=== PATIENT | male | born 1970 | race Caucasian/White ===

== ENCOUNTER → 2019-06-18 10:07 | Outpatient (CLI) | payer BC, SELFPAY ==
--- NOTE | ~2019-06-18 | MR_ITS ---
EXAMINATION: MR knee RT wo con DATE: 06/18/2019 10:40 INDICATION: Acute meniscal tear of unspecified meniscus. Right knee pain. TECHNIQUE: Magnetic resonance imaging (MRI) of the right knee was performed without intravenous contr ast. Sequences included axial PD-weighted FS FSE, coronal PD-weighted FSE and PD-weighted FS FSE, sag ittal PD-weighted FSE, and sagittal T2-weighted FS FSE. COMPARISON: None. FINDINGS: Medial compartment: There is a complex tear of posterior horn of medial meniscus. Tibial cartilage is normal. There is sh allow partial-thickness cartilage loss of femoral condyle involving the lateral articular surface. Lateral compartment: Lateral meniscus is normal. There is cartilage surface irregularity of femoral condyle and tibial con dyle. Patellofemoral compartment: Patellar cartilage is normal. Trochlear cartilage is normal. Ligaments and tendons: Anterior cruciate ligament is normal. There are changes of sprain of posterior cruciate ligament jess acterized by increased signal intensity. Medial collateral ligament and lateral collateral ligament c omplex are normal. There is mild patellar tendinopathy. Fluid: There is a small knee joint effusion. There is trace fluid in a Savage's cyst. IMPRESSION: 1. Mild chondrosis of medial and lateral compartments. 2. Complex tear of medial meniscus. 3. Small knee joint effusion. 4. Changes of prior sprain of posterior cruciate ligament. Reviewed, dictated and finalized at location A. [employer]IST
== END ==
PROVIDERS: Visit Provider Internal Medicine
DX: S83.231A Complex tear of medial meniscus, current injury, right knee, initial encounter (principal); X58.XXXA Exposure to other specified factors, initial encounter; M25.461 Effusion, right knee
CPT/HCPCS: 73721

== ENCOUNTER 2019-07-02 10:37 | Outpatient (CLI) | payer BC, SELFPAY ==
[2019-07-02 11:44] LABS: Alanine Aminotransferase 20 U/L (4-50); Albumin Level 4.9 g/dL (3.5-5.1); Alkaline Phosphatase 55 U/L (38-126); Aspartate Amino Transferase 32 U/L (17-59); Bilirubin,Total 0.7 mg/dL (0.2-1.3); Blood Urea Nitrogen 10 mg/dL (9-20); Calcium 9.1 mg/dL (8.4-10.2); Carbon Dioxide 29 mmol/L (22-30); Chloride 100 mmol/L (98-107); Estimated Glomerular Filt Rate > 60; Glucose 84 mg/dL (75-110); Potassium 3.9 mmol/L (3.4-5.0); Sodium 138 mmol/L (137-145)
[2019-07-02 12:14] LABS: Prostate Specific Antigen 2.4 ng/mL (< OR = 4.0)
[2019-07-04 05:42] LABS: Homocysteine 11.1 umol/L (<11.4)
[2019-07-04 09:42] LABS: Testosterone Total 496 ng/dL (250-1100)
== END 2019-07-02 10:38 | disposition home or self-care (01) ==
PROVIDERS: PCP Internal Medicine; Visit Provider Internal Medicine
DX: Z00.00 Encounter for general adult medical examination without abnormal findings (principal); Z12.5 Encounter for screening for malignant neoplasm of prostate
CPT/HCPCS: 36415; 80053; 83090; 84153; 84403; G0103

== ENCOUNTER 2021-03-18 16:42 | Outpatient (CLI) | payer OTHER, SELFPAY ==
--- NOTE | ~2021-03-18 | MR_ITS ---
EXAMINATION: MR knee RT wo con DATE: 03/18/2021 18:13 INDICATION: Chronic tear right medial meniscal tear presenting with medial right knee pain and swelli ng post injury 3 weeks prior. TECHNIQUE: Magnetic resonance imaging (MRI) of the right knee was performed without intravenous contr ast. Sequences included coronal PD-weighted FSE, coronal PD-weighted FS FSE, sagittal T2-weighted FS E, sagittal PD-weighted FS FSE and axial PD weighted fat saturated FSE. COMPARISON: None. FINDINGS: Medial compartment: Complex tear involving the body and posterior horn of the medial meniscus. The posterior horn appears small due to lateral displacement of a meniscal flap which can be seen extending cephalad between th e lateral margin of the posterior intercondylar notch and the posterior cruciate ligament. The periph eral inferior aspect of the meniscal body is also caudally subluxed along the medial rim of the media l tibial plateau. Articular cartilage is normal. Lateral compartment: Lateral meniscus is normal. Articular cartilage is normal. Patellofemoral compartment: Articular cartilage is normal. Ligaments and tendons: Anterior and posterior cruciate ligaments are normal. The fibular collateral ligament complex is norm al. There is small amount of fluid signal extending craniocaudally along the deep and superficial mar gins of the otherwise normal-appearing medial collateral ligament which given history of recent traum a would be consistent with low-grade sprain. Alternatively this could represent coincidental reactive edema related to the adjacent meniscal tear.. The extensor mechanism is normal. The visualized media l and lateral hamstring tendons as well as the iliotibial band are normal. Fluid: Small right knee joint effusion. No loose osteochondral bodies identified. Incomplete suprapatellar p lical band. There is also a medial plical band which remains medial to the rim of the medial trochlea . Osseous/other: Normal marrow signal. No fracture or pathologic marrow replacing process. IMPRESSION: 1. Complex tear of the body and posterior horn of the medial meniscus with displaced meniscal flap ar ising from the posterior horn. 2. Possible low-grade sprain of the medial collateral ligament. Differential would include reactive e kamala related to the adjacent meniscal tear. Reviewed, dictated and finalized at location A. [employer] IMPRESSION: 1. Complex tear of the body and posterior horn of the medial meniscus with disp laced meniscal flap arising from the posterior horn. 2. Possible low-grade sprain of the medial collateral ligament. Differential wo uld include reactive edema related to the adjacent meniscal tear.
== END 2021-03-18 16:43 | disposition home or self-care (01) ==
PROVIDERS: PCP Internal Medicine; Visit Provider Internal Medicine
DX: S83.231A Complex tear of medial meniscus, current injury, right knee, initial encounter (principal); M25.461 Effusion, right knee
CPT/HCPCS: 73721

== ENCOUNTER → 2021-04-03 03:48 | Outpatient (CLI) | payer OTHER, SELFPAY ==
[2021-04-04 16:07] LABS: SARS-CoV-2 RNA PCR Negative (Negative)
== END ==
PROVIDERS: PCP Internal Medicine; Visit Provider Orthopaedic Surgery
DX: U07.1 COVID-19 (principal)
CPT/HCPCS: C9803; U0003; U0005

== ENCOUNTER 2021-04-06 01:17 | Day surgery (SDC) | payer OTHER, SELFPAY ==
[2021-04-02 15:48] VITALS: BMI 24.2
--- NOTE | 2021-04-02 15:54 | PC.NURSE ---
Report to the Outpatient Waiting Room, entrance under the green pavilion located off [facility], at time __0900_ on date 04-06-2021. OR Time: ___1100_. - You and your visitor will be asked a series of questions to screen for COVID 19 for your protection. - A mask is required within the hospital. - Only one visitor is allowed at this time. Patient visitors will be guided where to wait when not with patient. Preoperative COVID Testing Requirements: Covid test 04-03-2021 at 0810 No COVID Test needed if: (proof is required; if not received patient will have Rapid Test prior to entry) - Patient has received COVID Vaccine at least 14 days prior to procedure date or - Patient has positive COVID test result within last 90 days of surgery date. COVID Test needed if above criteria is not met If not COVID vaccinated a COVID test must be conducted within 72 hours of surgery and patient is asked to isolate self from time of testing until procedure. You will go to the [facility] for your COVID testing. The [facility] is located at the corner of [address] from [facility]. You will only be called if COVID results are positive and your surgeon may reschedule your elective surgery date. Patients may have clear liquids (water, carbonated beverages, clear teas, apple juice) until 3 hours prior to surgery with a maximum of 20 ounces. - No food from midnight until time of surgery - Infants may have breast milk until 4 hours before surgery, formula 6 hours prior to surgery. - Children will be allowed to drink immediately following surgery. If applicable, please bring a bottle or sippy cup to assist with drinking. Juice, water, soda, and popsicles are readily available. For infants on formula, please bring formula the day of surgery. Pacifiers are allowed. Take the following medications with a SIP of water the morning of surgery: Medications to discontinue per physician Date to take last dose Please no make-up, nail mexican, hairspray, perfume, deodorant, or body powder the day of surgery. No jewelry (including any body piercings) or valuables the day of surgery, leave them at home. Please take a shower or bath the night before, or the morning of, surgery with an antibacterial soap. Wear comfortable, loose fitting clothing. Children are encouraged to wear pajamas. - Jewelry must be removed prior to entering the operating room. Rings and piercings that are not removed may be cut off. - The hospital will not accept responsibility for valuables. - Please leave all valuables, including medications, at home the day of surgery. If you are going home after surgery, a licensed local combination truck driver must drive you home. - NO public transportation without another adult. - We recommend that an adult stay with you for 24 hours following discharge. - We also recommend that you do not drive, make important decision, drink alcoholic beverages, or take any drugs that were not prescribed by your health care provider for at least 24 hours after your discharge time. For Pediatric surgeries, we recommend two adults accompany the child home (only one inside the building at this time). Follow any additional instructions given to you from your surgeon. Telephone instructions given to __Patient___and asked if any additional questions and then verbalized understanding. Patient advised to call surgeon office or pre surgery nurse liaison [phone] if any additional questions.
[2021-04-06] VITALS (8 sets, daily range): BP systolic 123–140; BP diastolic 83–96; PULSE 56–77; RESP 12–16; TEMP 36.1–36.2; O2SAT 98–100
--- NOTE | 2021-04-06 07:29 | WPDANESEPP ---
[facility] - Eval Pre Procedure Procedure: Operation Date: 04/06/21 11:00 Proposed Procedures p Right Knee Arthroscopy with Meniscectomy - Tato Choe MD Date/Time: 04/06/21 07:29 Pre Op Diagnosis: right knee medial meniscal tear Patient Data Age: 51 Gender: M Height: 1.83 m Weight: 80.9 kg Allergies Allergy/AdvReac Type Severity Reaction Status Date / Time No Known Allergies Allergy Verified 04/02/21 15:48 Home Medications Medication Instructions Recorded Confirmed Type No Home Medications 07/02/19 04/02/21 History Patient hx anesthesia problems: none Family hx anesthesia problems: none Results Review: All pre-operative results and documents have been reviewed as part of the pre-operative evaluation. [facility] Past Medical History Medical History BMI 23.0-23.9, adult Encounter for medical examination to establish care Right knee pain Right shoulder pain Tear of medial meniscus of right knee Family History Family History Mother Cancer Social History Social History Smoking status: Never smoker Alcohol intake: current Drinks per week: 5 Alcohol use details: Occasional Living arrangements: with family Additional living arrangements comments: Smiley- spouse Additional occupation/education comments: Dentist Spiritual care concerns: No Exam Day of Procedure 04/06/21 07:29 Patient weight: normal Heart: regular rate and rhythm Lungs: clear to auscultation Airway: Mallampati scale class II Neurological: alert and oriented
--- NOTE | 2021-04-06 09:54 | P.PNAN_ITS ---
Anes - Initial Pre Proc Eval Procedure: Operation Date: 04/06/21 11:00 Proposed Procedures p Right Knee Arthroscopy with Meniscectomy - Tato Choe MD Date/Time: 04/06/21 09:54 Surgeon: Tato Choe MD Pre Op Diagnosis: right knee medial meniscal tear Patient Data Age: 51 Gender: M Height: 1.83 m Weight: 80.9 kg Allergies Allergy/AdvReac Type Severity Reaction Status Date / Time No Known Allergies Allergy Verified 04/06/21 09:27 Home Medications Medication Instructions Recorded Confirmed Type No Home Medications 07/02/19 04/02/21 History Patient hx anesthesia problems: none Family hx anesthesia problems: none Results Review: All pre-operative results and documents have been reviewed as part of the pre-operative evaluation. [facility], [facility] Past Medical History Medical History BMI 23.0-23.9, adult Encounter for medical examination to establish care Right knee pain Right shoulder pain Tear of medial meniscus of right knee Family History Family History Mother Cancer Social History Social History (Updated 04/06/21 @ 10:09 by Ricardo Carrillo DO) Smoking status: Never smoker Alcohol intake: current Drinks per week: 5 Alcohol use details: 1 drink/day Living arrangements: with family Additional living arrangements comments: Smiley- spouse Additional occupation/education comments: Dentist Spiritual care concerns: No Anes - Eval Final PreProcedure Day of Procedure 04/06/21 09:54 Patient weight: normal Heart: regular rate and rhythm Lungs: clear to auscultation and normal air movement Airway: Mallampati scale class II Neurological: alert and oriented Last oral intake: >/= 8 hours ASA classification: II Emergent: no Anesthetic plan: proceed Anesthesia type and monitoring: general LMA and standard monitoring Results Review: All pre-operative results and documents have been reviewed as part of the pre-operative evaluation. Informed Consent: The patient's anesthetic plan and its attendant risks and b enefits were discussed with the patient/family/POA. Questions were solicited and answers provided to the satisfaction of the patient/family/POA.
[2021-04-06] MEDS: LACTATED RINGERS 1,000 ML 30 ML IV CONT ×2 (10:25→12:19)
[2021-04-06] MEDS: KETOROLAC 15 MG/ML VIAL (*BKC) IV PUSH ×2 (10:30→12:59)
--- NOTE | 2021-04-06 11:14 | WPDHPUPDATE1 ---
History and Physical Update Update Date/Time: 04/06/21 11:14 History and Physical has been reviewed, including an updated exam of the patient. There are NO changes in the patient's condition. Risks, benefits, and alternatives have been discussed and questions answered. Patient agrees to proceed with procedure.
[2021-04-06] MEDS: ceFAZolin 2 GM/D5W 50 ML 2 GM/50 ML BAG IVPB (11:19)
[2021-04-06] MEDS: LIDOCAINE HCL 1% PF 30 ML VIAL 20 ML INFILTRATE (11:38)
--- NOTE | 2021-04-06 12:22 | P.OP_ITS ---
Procedure Note - Detailed Date of Procedure 04/06/21 Pre-op Diagnosis right knee medial meniscal tear Post-op Diagnosis same Procedure Performed Right knee arthroscopy partial medial meniscectomy Surgeon Tato Choe MD Anesthesia general Description of Procedure The patient was identified and proper site identified and he was taken to the operating room, transferred to the OR table placing her supine taking care to pad the torso and extremities. After general anesthetic induction and intubation, a nonsterile tourniquet was placed high on the right thigh but was not inflated. The right lower extremity was positioned, prepped and draped in usual sterile fashion. 10 cc of 1% lidocaine was injected into the subcutaneous tissue in the area of the portals at start of the procedure, and an additional 10 at the end. The portals were established and the arthroscopy was carried out. Articular cartilage in all three compartments shows some early grade 2 changes, but this was most pronounced medially. Lateral meniscus was intact. Anterior posterior cruciate ligaments were in continuity. Other than some mild synovitis in the gutters and pouch, these areas were unremarkable as well. Most significant finding was a complex tear of the medial meniscus from the posterior horn into the midbody which was unstable. This was contoured back to a stable rim with basket forceps and a shaver. Arthrocare Wand was used for intra- articular hemostasis. The knee was flushed with a copious amount of art hroscopic fluid and equipment was removed. Portals were closed with three O nylon suture and a sterile dressing was applied. He tolerated the procedure well, was awakened, extubated and taken to recovery area in stable condition. There were no known intraoperative complications. Estimated blood loss was negligible; he received perioperative antibiotics. Estimated Blood Loss 5 Tourniquet Time 0 Drains No Packing No Pathology none sent Complications No immediate complications Condition stable Disposition PACU
[2021-04-06] MEDS: ACETAMINOPHEN 500 MG TABLET 1000 MG PO (13:02)
== END 2021-04-06 14:17 | disposition home or self-care (01) ==
PROVIDERS: PCP Internal Medicine; Visit Provider Orthopaedic Surgery
PROC: (CPT 29870; principal; 2021-04-06 11:00)
DX: S83.231A Complex tear of medial meniscus, current injury, right knee, initial encounter (principal); X50.0XXA Overexertion from strenuous movement or load, initial encounter; M65.861 Other synovitis and tenosynovitis, right lower leg
CPT/HCPCS: 29881; A9270; J0690; J1100; J1885; J2250; J2405; J2704; J7120

== ENCOUNTER 2021-05-25 10:42 | Outpatient (RCR) | payer OTHER, SELFPAY | END 2021-05-25 10:43 | disposition home or self-care (01) | LOC: ANHPT 10:42 | PROVIDERS: PCP Internal Medicine; Visit Provider Orthopaedic Surgery | DX: S83.231D Complex tear of medial meniscus, current injury, right knee, subsequent encounter (principal) | CPT/HCPCS: 99199 ==

== ENCOUNTER 2021-09-30 06:38 | Outpatient (CLI) | payer OTHER, SELFPAY ==
[2021-09-30 07:42] LABS: Basophils Absolute Auto 0.1 K/mm3 (0.0-0.1); Basophils Percent Auto 1.7 % (0.2-1.2); Eosinophils Absolute Auto 0.1 K/mm3 (0-0.3); Eosinophils Percent Auto 1.9 % (0-4.4); Hematocrit 44.3 % (42.0-52.0); Hemoglobin 15.4 g/dL (14.0-18.0); Immature Granulocyte Absolute 0.05 K/mm3 (0.00-0.031); Immature Granulocyte Percent A 0.9 % (0-0.5); Mean Corpuscular HGB Conc 34.8 g/dl (32-36); Mean Corpuscular Volume 89.3 fl (80-100); Mean Platelet Volume 9.4 fl (7.4-10.4); Monocytes Absolute Auto 0.6 K/mm3 (0.1-0.6); Monocytes Percent Auto 10.9 % (2.6-8.5); Neutrophils Absolute Auto 3.3 K/mm3 (1.3-6.7); Neutrophils Percent Auto 55.6 % (45.5-73.1); Platelet Count Result 260 k/mm3 (150-375); Red Blood Count 4.96 M/mm3 (4.6-6.20); White Blood Count 5.9 K/mm3 (4.5-10.0)
[2021-09-30 07:58] LABS: Appearance Urine Clear (Clear); Bilirubin Urine Negative (Negative); Blood Urine Negative (Negative); Color Urine Yellow (Yellow); Glucose Urine UA Negative (Negative); Ketones Urine Negative (Negative); Leukocyte Esterase Ur Trace LEU/UL (Negative); Nitrate Urine Negative (Negative); Protein Urine Negative (Negative); Specific Grav Ur 1.015 (1.001-1.035); Urobilinogen Urine 0.2 mg/dL (<2.0)
[2021-09-30 08:00] LABS: Alanine Aminotransferase 33 U/L (6-50); Albumin Level 4.8 g/dL (3.5-5.1); Alkaline Phosphatase 61 U/L (38-126); Anion Gap 6 mmol/L (8-16); Aspartate Amino Transferase 29 U/L (17-59); Bilirubin,Total 0.4 mg/dL (0.2-1.3); Blood Urea Nitrogen 19 mg/dL (9-20); Calcium 8.7 mg/dL (8.4-10.2); Carbon Dioxide 27 mmol/L (22-30); Chloride 107 mmol/L (98-107); Cholesterol 219 mg/dL (0-200); Estimated Glomerular Filt Rate > 60; Glucose 106 mg/dL (65-110); HDL Direct 59 mg/dL; Potassium 5.3 mmol/L (3.4-5.0); Sodium 140 mmol/L (137-145); Triglycerides 131 mg/dL (<150)
[2021-09-30 08:10] LABS: LDL Cholesterol Direct 123 mg/dL
[2021-09-30 08:25] LABS: Free T4 Free Thyroxine 1.14 ng/mL (0.78-2.19); Vitamin D 25 Hydroxy 45.1 ng/mL
[2021-09-30 08:31] LABS: Add Urine Microscopic? NO
[2021-09-30 08:33] LABS: Prostate Specific Antigen 1.9 ng/mL (< OR = 4.0)
[2021-10-03 03:21] LABS: Insulin Level Total 6.8 uIU/mL (<=19.6)
[2021-10-03 05:36] LABS: C-Peptide 1.39 ng/mL (0.80-3.85)
[2021-10-04 00:06] LABS: Testosterone Total 404 ng/dL (250-1100)
== END 2021-09-30 06:39 | disposition home or self-care (01) ==
LOC: ANHLAB 06:39
PROVIDERS: PCP Internal Medicine; Visit Provider Internal Medicine
DX: Z12.5 Encounter for screening for malignant neoplasm of prostate (principal); Z00.00 Encounter for general adult medical examination without abnormal findings; Z51.81 Encounter for therapeutic drug level monitoring; Z79.899 Other long term (current) drug therapy
CPT/HCPCS: 36415; 80053; 80061; 81003; 82306; 83525; 84153; 84403; 84439; 84443; 84681; 85025; G0103

== ENCOUNTER 2021-10-01 07:11 | Outpatient (CLI) | payer OTHER, SELFPAY ==
[2021-10-05 09:57] LABS: Testosterone Total 402 ng/dL (250-1100)
== END 2021-10-01 07:12 | disposition home or self-care (01) ==
LOC: ANHLAB 07:13
PROVIDERS: PCP Internal Medicine; Visit Provider Internal Medicine
DX: Z00.00 Encounter for general adult medical examination without abnormal findings (principal); R53.83 Other fatigue
CPT/HCPCS: 36415; 84403